=== PATIENT | female | born 1970 ===

== ENCOUNTER 2016-08-17 14:28 | Emergency (ER) | payer OTHER ==
[2016-08-17 14:43] VITALS: TEMP 98.4; O2SAT 99
[2016-08-17 15:33] LABS: BASO % 0.3 % (0.0-2.0); EOS # 0.1 K/uL (0.0-0.7); EOS % 0.9 % (0.0-4.0); HEMATOCRIT 43.4 % (34.0-47.0); LYMPH # 1.9 K/uL (1.0-4.3); LYMPH % 20.6 % (20.0-40.0); MEAN CELL VOLUME 90.3 fL (81.0-99.0); MEAN CORPUSCULAR HEMOGLOBIN 30.6 pg (27.0-31.0); MEAN CORPUSCULAR HGB CONC 33.9 g/dL (33.0-37.0); MEAN PLATELET VOLUME 7.2 fL (7.2-11.7); MONO # 0.5 K/uL (0.0-0.8); MONO % 5.5 % (0.0-10.0); RED CELL DISTRIBUTION WIDTH 13.3 % (11.5-14.5); WHITE BLOOD COUNT 9.1 K/uL (4.8-10.8)
[2016-08-17 15:38] LABS: RBC URINE 2 /hpf (0-3); URINE BACTERIA RARE (<OCC); URINE BILIRUBIN NEGATIVE (NEGATIVE); URINE BLOOD NEGATIVE (NEGATIVE); URINE COLOR Yellow (YELLOW); URINE GLUCOSE (UA) NORMAL (Normal); URINE KETONE NEGATIVE (NEGATIVE); URINE LEUKOCYTE ESTERASE NEG Leu/uL (Negative); URINE PROTEIN NEGATIVE (NEGATIVE); URINE UROBILINOGEN NORMAL mg/dL (0.2-1.0); WBC URINE 4 /hpf (0-5)
[2016-08-17 15:41] LABS: CHLORIDE 98 mmol/L (98-107); POTASSIUM 4.2 mmol/L (3.6-5.2); SODIUM 140 mmol/L (132-148)
[2016-08-17 15:43] LABS: ALB/GLOB RATIO 1.3 (1.0-2.1); ALKALINE PHOSPHATASE 58 U/L (38-126); AST/SGOT 31 U/L (14-36); BILIRUBIN,TOTAL 0.7 mg/dL (0.2-1.3); BLOOD UREA NITROGEN 12 mg/dL (7-17); CARBON DIOXIDE 26 mmol/L (22-30); GFR AFRICAN-AMERICAN > 60; TOTAL PROTEIN 8.3 g/dL (6.3-8.3)
[2016-08-17 15:44] LABS: ALCOHOL SERUM < 10 mg/dl (0-10); ALT/SGPT 34 U/L (9-52); CALCIUM 9.3 mg/dl (8.6-10.4); GLUCOSE,RANDOM 99 mg/dL (65-105)
--- NOTE | 2016-08-17 15:46 | C.PDOC ---
History Of Present Illness A 46 year old female presents to the ER c/o anxiety and tightness to the chest with palpitations for the last few days. Patient notes not being able to eat and sleep due to separation with her partner. Patient denies nausea, vomiting, fever, chills, headaches, suicidal or homicidal ideation. Time Seen by Provider: 08/17/16 14:58 Chief Complaint (Nursing): Anxiety History Per: Patient History/Exam Limitations: no limitations Onset/Duration Of Symptoms: Days Current Symptoms Are (Timing): Still Present Suicide/Self Injury Attempted (Context): None Modifying Factor(s): None Severity: Mild Associated Symptoms: denies: Suicidal Thoughts, Suicidal Plan Involuntary Hold By: None Recent travel outside of the [place]: No Additional History Per: Patient Past Medical History Reviewed: Historical Data, Nursing Documentation, Vital Signs Vital Signs: Last Vital Signs Temp 98.4 F 08/17/16 14:42 Pulse 91 H 08/17/16 14:42 Resp 16 08/17/16 14:42 BP 121/79 08/17/16 14:42 Pulse Ox 99 08/17/16 16:02 - Medical History PMH: Anxiety, Arthritis, Asthma, Depression, Gastritis Denies: Chronic Kidney Disease Family History: States: Unknown Family Hx - Social History Hx Alcohol Use: No Hx Substance Use: No - Immunization History Hx Tetanus Toxoid Vaccination: Yes Hx Influenza Vaccination: No Hx Pneumococcal Vaccination: No Review Of Systems Except As Marked, All Systems Reviewed And Found Negative. Constitutional: Negative for: Fever, Chills Cardiovascular: Positive for: Palpitations, Other (Chest tightness) Gastrointestinal: Negative for: Nausea, Vomiting Neurological: Negative for: Headache Psych: Positive for: Anxiety. Negative for: Suicidal ideation Physical Exam - Physical Exam Appears: Non-toxic, No Acute Distress, Other (Appears anxious) Skin: Warm, Dry Head: Atraumatic, Normacephalic Eye(s): bilateral: Normal Inspection, PERRL, EOMI Cardiovascular: Rhythm Regular, No Murmur Respiratory: Normal Breath Sounds, No Rales, No Rhonchi, No Wheezing Neurological/Psych: Oriented x3, Normal Speech, Normal Cognition, Other (A&A) ED Course And Treatment - Laboratory Results Result Diagrams: 08/17/16 15:18 08/17/16 15:18 O2 Sat by Pulse Oximetry: 99 (RA) Pulse Ox Interpretation: Normal Medical Decision Making Medical Decision Making: Impression: 46 y/o male c/o anxiety and tightness off the chest with palpitations. Plans: -Crisis eval -Reassess and disposition Crisis was contacted for evaluation of the patient. Patient seen by crisis, will follow up in [facility] Disposition Counseled Patient/Family Regarding: Studies Performed, Diagnosis, Need For Followup, Rx Given - Disposition Referrals: Clinic,Med Surg [Primary Care Provider] - Disposition: HOME/ ROUTINE Disposition Time: 18:21 Condition: STABLE Additional Instructions: Follow up as indicated by the crisis team Prescriptions: Lorazepam [Ativan] 1 tab PO HS #5 tab Instructions: Anxiety (ED) Forms: Gen Discharge Inst Sinhala, Work Excuse - POA Present On Arrival: None - Clinical Impression Clinical Impression: Anxiety - Scribe Statement The provider has reviewed the documentation as recorded by the Scribe Ranulfo dao All medical record entries made by the Scribe were at my direction and personally dictated by me. I have reviewed the chart and agree that the record accurately reflects my personal performance of the history, physical exam, medical decision making, and the department course for this patient. I have also personally directed, reviewed, and agree with the discharge instructions and disposition.
[2016-08-17 18:27] VITALS: BP 122/72; PULSE 72; RESP 18
== END 2016-08-17 18:46 | disposition home or self-care (01) ==
LOC: C.ER 14:28 → SUPCPDRO 14:28 → C.ER 18:46
DX: F41.9 Anxiety disorder, unspecified (principal)

== ENCOUNTER 2016-10-11 21:39 | Emergency (ER) | payer OTHER ==
[2016-10-11 21:58] VITALS: O2SAT 97
[2016-10-11] MEDS ORDERED: Sodium Chloride 0.9% 1,000 ML IV ONE (23:12)
[2016-10-11 23:28] LABS: ALBUMIN 4.1 g/dL (3.5-5.0); HCG,QUALITATIVE URINE NEGATIVE (NEGATIVE)
[2016-10-11 23:29] LABS: BASO % 0.7 % (0.0-2.0); EOS # 0.1 K/uL (0.0-0.7); EOS % 1.9 % (0.0-4.0); HEMOGLOBIN 13.9 g/dL (11.0-16.0); LYMPH # 1.8 K/uL (1.0-4.3); LYMPH % 27.7 % (20.0-40.0); MEAN CELL VOLUME 92.1 fL (81.0-99.0); MEAN CORPUSCULAR HEMOGLOBIN 29.9 pg (27.0-31.0); MEAN CORPUSCULAR HGB CONC 32.5 g/dL (33.0-37.0); MEAN PLATELET VOLUME 7.3 fL (7.2-11.7); MONO # 0.5 K/uL (0.0-0.8); MONO % 7.7 % (0.0-10.0); NEUT # 4.1 K/uL (1.8-7.0); RBC 4.63 Mil/uL (3.80-5.20); RED CELL DISTRIBUTION WIDTH 12.6 % (11.5-14.5); WHITE BLOOD COUNT 6.6 K/uL (4.8-10.8)
[2016-10-11 23:30] LABS: SQUAMOUS EPITHIAL 7 /hpf (0-5); URINE BACTERIA RARE (<OCC); URINE BILIRUBIN NEGATIVE (NEGATIVE); URINE BLOOD NEGATIVE (NEGATIVE); URINE CLARITY Clear (Clear); URINE COLOR Straw (YELLOW); URINE GLUCOSE (UA) NORMAL (Normal); URINE LEUKOCYTE ESTERASE NEG Leu/uL (Negative); URINE NITRATE NEGATIVE (NEGATIVE); URINE PROTEIN NEGATIVE (NEGATIVE); URINE UROBILINOGEN NORMAL mg/dL (0.2-1.0)
[2016-10-11 23:31] LABS: GFR AFRICAN-AMERICAN > 60; GFR NON-AFRICAN AMERICAN > 60
[2016-10-11 23:32] LABS: ALT/SGPT 25 U/L (9-52); AST/SGOT 21 U/L (14-36); BLOOD UREA NITROGEN 9 mg/dL (7-17); CALCIUM 8.7 mg/dl (8.6-10.4); LIPASE 151 U/L (23-300)
[2016-10-12 01:21] VITALS: RESP 20
--- NOTE | 2016-10-12 02:44 | C.PDOC ---
History Of Present Illness 46 year old female presents to the ED with complaints of right, mid, and low back pain that radiates down her legs. Patient notes a history of chronic pain with intermittent flare ups (similar to current symptoms). Pain worsened this afternoon, and sometimes radiates forward into the abdomen. Patient denies nausea, vomiting, diarrhea, fever, dysuria/hematuria, sensory changes in the legs, extremity weakness, urinary retention, bowel or bladder incontinence. Time Seen by Provider: 10/11/16 22:22 Chief Complaint (Nursing): Abdominal Pain History Per: Patient History/Exam Limitations: no limitations Onset/Duration Of Symptoms: Persistent (chronic pain ) Current Symptoms Are (Timing): Still Present Severity: Moderate Radiation Of Pain To:: Leg, Other (abdomen) Quality Of Discomfort: "Pain" Associated Symptoms: denies: Fever, Chills, Nausea, Vomiting, Diarrhea, Constipation, Urinary Symptoms Abnormal Vaginal Bleeding: No Past Medical History Reviewed: Historical Data, Nursing Documentation, Vital Signs Vital Signs: Last Vital Signs Temp 98.0 F 10/12/16 02:45 Pulse 70 10/12/16 02:45 Resp 20 10/12/16 02:45 BP 106/73 10/12/16 02:45 Pulse Ox 97 10/12/16 03:35 - Medical History PMH: Anxiety, Arthritis, Asthma, Depression, Gastritis Family History: States: No Known Family Hx - Social History Hx Alcohol Use: No Hx Substance Use: No - Immunization History Hx Tetanus Toxoid Vaccination: Yes Hx Influenza Vaccination: No Hx Pneumococcal Vaccination: No Review Of Systems Except As Marked, All Systems Reviewed And Found Negative. Constitutional: Negative for: Fever, Chills Cardiovascular: Negative for: Chest Pain, Palpitations Respiratory: Negative for: Cough, Shortness of Breath Gastrointestinal: Negative for: Nausea, Vomiting, Abdominal Pain, Diarrhea Genitourinary: Negative for: Dysuria, Hematuria Musculoskeletal: Positive for: Back Pain, Leg Pain Skin: Negative for: Rash Neurological: Negative for: Weakness, Numbness Physical Exam - Physical Exam Appears: Well, Non-toxic, In Acute Distress ( in mild pain) Skin: Normal Color, Warm, Dry, No Rash Eye(s): bilateral: Normal Inspection Oral Mucosa: Moist Neck: Supple Cardiovascular: Rhythm Regular Respiratory: Normal Breath Sounds, No Rales, No Rhonchi, No Wheezing Gastrointestinal/Abdominal: Normal Exam, Bowel Sounds, Soft, No Tenderness Back: No CVA Tenderness, No Vertebral Tenderness, Paraspinal Tenderness (right sided paraspinal tenderness approx T10- L4 level) Extremity: Normal ROM, No Tenderness, No Pedal Edema, No Calf Tenderness Extremity: Bilateral: Atraumatic, Normal Color And Temperature, Normal ROM Pulses: Left Dorsalis Pedis: Normal, Right Dorsalis Pedis: Normal Neurological/Psych: Oriented x3, Normal Motor, Normal Sensation Gait: Steady ED Course And Treatment - Laboratory Results Result Diagrams: 10/11/16 23:18 10/11/16 23:18 O2 Sat by Pulse Oximetry: 97 (room air ) Pulse Ox Interpretation: Normal Progress Note: Blood work, UA ordered and reviewed. Patient given IV toradol, IV NS bolus, PO Flexeril. Reevaluation Time: 02:50 Reassessment Condition: Improved (Patient reassessed, still having some mild pain, PO Percocet ordered. Blood work and UA unremarkable. Patient well appearing, and ambulating normally in the ED. Rxs given for naprosyn and flexeril. Patient instructed to follow up with PMD/clinic in 1-2 days. She understands she should return to ED if symptoms worsen.) Disposition Counseled Patient/Family Regarding: Studies Performed, Diagnosis, Need For Followup, Rx Given - Disposition Referrals: [facility] at [facility] [Outside] Disposition: HOME/ ROUTINE Disposition Time: 03:00 Condition: STABLE Prescriptions: Cyclobenzaprine [Cyclobenzaprine HCl] 10 mg PO BID PRN #12 tab PRN Reason: pain/muscle Naproxen [Naprosyn Tab] 375 mg PO BID PRN #20 tab PRN Reason: pain Instructions: Chronic Pain (ED) Print Language: PITCAIR[place] ISLANDER - POA Present On Arrival: None - Clinical Impression Clinical Impression: Back pain, Chronic pain - Scribe Statement The provider has reviewed the documentation as recorded by the Wongibkenisha Marshall All medical record entries made by the Wongibkenisha were at my direction and personally dictated by me. I have reviewed the chart and agree that the record accurately reflects my personal performance of the history, physical exam, medical decision making, and the department course for this patient. I have also personally directed, reviewed, and agree with the discharge instructions and disposition.
[2016-10-12 02:47] VITALS: BP 106/73; PULSE 70; TEMP 98
[2016-10-12] MEDS ORDERED: Oxycodone/Acetaminophen 5/325 mg Tab PO STA (03:03)
[2016-10-12] MEDS ORDERED: Oxycodone/Acetaminophen 5/325 mg Tab ONE (03:06)
== END 2016-10-12 03:07 | disposition home or self-care (01) ==
LOC: C.ER 21:39
DX: M54.5 Low back pain (principal)
CPT/HCPCS: 80053; 81001; 83690; 84703; 85025; 96361; 96374; 99285; J1885; J7040

== ENCOUNTER 2016-10-23 15:45 | Emergency (ER) | payer OTHER ==
[2016-10-23 15:49] VITALS: BMI 22.3
[2016-10-23 15:52] VITALS: BP 104/67; PULSE 89; RESP 18; TEMP 97.9; O2SAT 97
--- NOTE | 2016-10-23 16:54 | C.PDOC ---
History Of Present Illness 46 y/o female with Hx of Chronic right lower back pain presents to ED with complaints of right lower back and scapula pain for 2 weeks worse with movement. Patient states she taken Naproxen and Muscle relaxant once daily not twice as instructed. patient was scheduled for mri of lumbar spine in may 2016, but did not get study done. Patient was seen at ED for same symptoms 2 weeks ago. Patient denies urinary symptoms, fever, chills, n/v/d or any other complaints at this time. Time Seen by Provider: 10/23/16 16:09 Chief Complaint (Nursing): Back Pain History Per: Patient History/Exam Limitations: no limitations Onset/Duration Of Symptoms: Days Current Symptoms Are (Timing): Still Present Exacerbating Factor(s): Movement Past Medical History Reviewed: Historical Data, Nursing Documentation, Vital Signs Vital Signs: Last Vital Signs Temp 97.9 F 10/23/16 15:50 Pulse 89 10/23/16 15:50 Resp 18 10/23/16 15:50 BP 104/67 10/23/16 15:50 Pulse Ox 97 10/25/16 08:12 - Medical History PMH: Anxiety, Arthritis, Asthma, Depression, Gastritis Family History: States: Unknown Family Hx - Social History Hx Alcohol Use: No Hx Substance Use: No - Immunization History Hx Tetanus Toxoid Vaccination: Yes Hx Influenza Vaccination: No Hx Pneumococcal Vaccination: No Review Of Systems Constitutional: Negative for: Fever, Chills Gastrointestinal: Negative for: Nausea, Vomiting, Diarrhea Genitourinary: Negative for: Dysuria, Frequency, Incontinence Musculoskeletal: Positive for: Back Pain Skin: Negative for: Rash Physical Exam - Physical Exam Appears: Other (Thin female, Uncomfortable) Skin: Normal Color, Warm Head: Atraumatic, Normacephalic Oral Mucosa: Moist Neck: Normal ROM, No Midline Cervical Tenderness Chest: Symmetrical, No Deformity, No Tenderness Back: Normal Inspection, No Vertebral Tenderness, Muscle Spasm, Other (Right lumbar area tenderness, tender to right rhomboid area) Extremity: Normal ROM Neurological/Psych: Oriented x3, Normal Motor, Normal Sensation, Normal Reflexes ED Course And Treatment O2 Sat by Pulse Oximetry: 97 (RA) Pulse Ox Interpretation: Normal Medical Decision Making Medical Decision Making: pt much more comfortable after medications. will d/c home with lidoderm patches ; pt has naproxen and flexeril at home, advised to go to radiology to see if they will honor rx for mri from [place], and to f/u in clinic [facility]. Disposition Counseled Patient/Family Regarding: Diagnosis, Need For Followup, Rx Given - Disposition Referrals: [facility] [Outside] [facility] [Outside] Disposition: HOME/ ROUTINE Disposition Time: 18:42 Condition: IMPROVED Additional Instructions: [place] Relaxante Muscular y Naproxeno cada 12 horas. Dena Tylenol entre si es necesario para el dolor. Coloque el parche en el sal dolorosa trev 12 horas y luego 12 horas de descanso. Trate de hacerse garo resonancia magntica, vaya a la oficina de radiologa para alba si lo harn. Seguimiento en la clnica [facility] [place] sea posible- tratar de obtener un appoimtment anterior de roseanne. Prescriptions: Acetaminophen 650 mg PO Q8 #50 tablet Lidocaine 5% [Lidoderm] 1 patch TP Q12 #10 patch Instructions: Acute Low Back Pain (ED) Forms: Gen Discharge Inst Belarusian Print Language: MACEDONIAN - Clinical Impression Clinical Impression: Low back pain - Scribe Statement The provider has reviewed the documentation as recorded by the Scribkenisha Geiger All medical record entries made by the Scribe were at my direction and personally dictated by me. I have reviewed the chart and agree that the record accurately reflects my personal performance of the history, physical exam, medical decision making, and the department course for this patient. I have also personally directed, reviewed, and agree with the discharge instructions and disposition.
[2016-10-23] MEDS ORDERED: Lidocaine 5% Patch TD STA (17:23)
[2016-10-23] MEDS ORDERED: Lidocaine 5% Patch TD ONE (18:02)
== END 2016-10-23 18:53 | disposition home or self-care (01) ==
LOC: C.ER 15:45
DX: M54.5 Low back pain (principal)
CPT/HCPCS: 96372; 99283; J1885

== ENCOUNTER 2016-12-02 18:48 | Emergency (ER) | payer OTHER ==
[2016-12-02 18:48] VITALS: BMI 21.7
[2016-12-02 18:55] VITALS: RESP 18
[2016-12-02 19:13] LABS: RBC URINE < 1 /hpf (0-3); URINE BILIRUBIN NEGATIVE (NEGATIVE); URINE BLOOD NEGATIVE (NEGATIVE); URINE COLOR Yellow (YELLOW); URINE GLUCOSE (UA) NORMAL (Normal); URINE KETONE NEGATIVE (NEGATIVE); URINE LEUKOCYTE ESTERASE NEG Leu/uL (Negative); URINE PROTEIN NEGATIVE (NEGATIVE); URINE UROBILINOGEN NORMAL mg/dL (0.2-1.0); WBC URINE < 1 /hpf (0-5)
[2016-12-02] MEDS ORDERED: Sodium Chloride 0.9% 1,000 ML IV ONE (19:52)
--- NOTE | 2016-12-02 19:53 | C.PDOC ---
History Of Present Illness 46 year old female w/o significant pMHx presents to the ED with complaints of increased urinary frequency worse at night time for past few months. Patient sts , for past week, " unable to sleep because of urination and noted significant weight loss as well ", (+) moderate suprapubic tenderness. Otherwise, pt denies fever, chills, headache, weakness, CP, SOB, dyspnea, palpitation, V/D, hematuria , back pain, vaginal irritation or discharges. Ambulate to ED for evaluation, not in any apparent distress. Time Seen by Provider: 12/02/16 19:12 Chief Complaint (Nursing): Female Genitourinary History Per: Patient History/Exam Limitations: no limitations Onset/Duration Of Symptoms: Days Current Symptoms Are (Timing): Still Present Location Of Pain/Discomfort: Suprapubic Radiation Of Pain To:: None Quality Of Discomfort: Pressure Associated Symptoms: Other (increased urinary frequency ). denies: Fever, Chills, Nausea, Vomiting Recent travel outside of the [place]: No Past Medical History Reviewed: Historical Data, Nursing Documentation, Vital Signs Vital Signs: Last Vital Signs Temp 98.5 F 12/02/16 18:52 Pulse 88 12/02/16 18:52 Resp 18 12/02/16 18:52 BP 100/67 12/02/16 18:52 Pulse Ox 96 12/02/16 21:08 - Medical History PMH: Anxiety, Arthritis, Asthma, Depression, Gastritis, Hypercholesterolemia Family History: States: Unknown Family Hx - Social History Hx Alcohol Use: No Hx Substance Use: No - Immunization History Hx Tetanus Toxoid Vaccination: Yes Hx Influenza Vaccination: No Hx Pneumococcal Vaccination: No Review Of Systems Constitutional: Negative for: Fever, Chills Cardiovascular: Negative for: Chest Pain Respiratory: Negative for: Shortness of Breath Gastrointestinal: Positive for: Abdominal Pain (suprapubic pressure ). Negative for: Nausea, Vomiting, Diarrhea Genitourinary: Positive for: Frequency (urinary frequency ). Negative for: Dysuria, Hematuria, Vaginal Bleeding Physical Exam - Physical Exam Appears: Well, Non-toxic, No Acute Distress Skin: Warm, Dry, No Rash Head: Atraumatic, Normacephalic Eye(s): bilateral: PERRL Nose: No Flaring Oral Mucosa: Moist Throat: No Erythema, No Exudate, No Drooling Neck: Supple Chest: Symmetrical, No Deformity Cardiovascular: Rhythm Regular Respiratory: No Decreased Breath Sounds, No Accessory Muscle Use, No Rhonchi, No Stridor, No Wheezing Gastrointestinal/Abdominal: Soft, Tenderness (suprapubic tenderness ), No Distention, No Guarding, No Rebound Back: No CVA Tenderness Pelvic: Other (refused) Extremity: No Tenderness, No Pedal Edema Neurological/Psych: Oriented x3, Normal Speech, Normal Cognition ED Course And Treatment - Laboratory Results Result Diagrams: 12/02/16 20:28 12/02/16 20:28 Lab Interpretation: Normal O2 Sat by Pulse Oximetry: 96 (room air ) Pulse Ox Interpretation: Normal - CT Scan/US CT abd/plevis Other Rad Studies (CT/US): Radiology Report Reviewed CT/US Interpretation: FINDINGS: Lower thorax: Heart size is normal. There is 2.2 mm peripheral nodule in the right middle lobe. There is minimal pleural scarring. There are no effusions. ABDOMEN: Liver: There is a cyst in the right lobe of the liver. Gallbladder and bile ducts: unremarkable. Pancreas: unremarkable. Spleen: unremarkable. Adrenals: unremarkable. Kidneys and ureters: unremarkable. Stomach and bowel: Stomach is partially distended. There is small amount of radiopaque material in. the stomach. Rotation is normal. Small bowel is mildly distended with fluid and air. Terminal ileum is. distended with fluid. Appendix is unremarkable There is moderate stool in the colon. There is. scattered diverticulosis. Appendix: See stomach and bowel. PELVIS: Bladder: unremarkable. Reproductive: Uterus is absent. There are no adnexal masses. ABDOMEN and PELVIS: Intraperitoneal space: There is no significant fluid. No free air. Bones/joints: There are no acute osseous abnormalities. Soft tissues: unremarkable. Vasculature: unremarkable. Lymph nodes: There is shotty adenopathy. Other findings: Please. IMPRESSION: 2.2 mm right middle lobe nodule; no acute solid visceral abnormality, no renal or. ureteral stones or hydronephrosis; probable ileus, no obstruction. Additional findings as described above. Footer: As per Fleischner Society guidelines for follow-up and management of pulmonary nodules: For patients at low risk ( minimal or absent history of smoking and of other known risk factors), no follow -up needed. For patient at high risk (history of smoking or of other known risk factors),. recommend follow-up chest CT at 12 months; if unchanged, no further follow-up needed. Thank you for allowing us to participate in the care of your patient. Dictated and Authenticated by: Mary James MD. 2016 9:22 PM Eastern Time ([place] & [place]) Progress Note: Labs and abdominal CT were ordered. Patient was given IV fluids. On re-eval, pt is afebrile, hemodynamicaly stable. Tolerate Po well in ED. AMbulatoyr in ED with stable gait. Neck: Supple. ENT: no acute findings. Abd : benign, (-) guardng, (-) rebound. Back: (-) CVA tenderness. Neurological intact. Blood work, UA results review and appears normal. CT abd/plevis review and discussed with pt, small lung nodules, otherwise- unremarcable. Pt has clinical findings c/w urinary frequency. Pt advised and ref. to F/u with PMD , [facility] in 2-3 days for re-eavl. return to ED if any worsening or new changes. Disposition Counseled Patient/Family Regarding: Studies Performed, Diagnosis, Need For Followup, Rx Given - Disposition Referrals: [facility] at [facility] [Outside] [facility] [Outside] Disposition: HOME/ ROUTINE Disposition Time: 21:23 Condition: STABLE Additional Instructions: Take medication as prescribed Follow up with PMD, [facility] , Urology in 2-3 days for re-evaluation. Return to ED if any worsening or new changes. Prescriptions: Ciprofloxacin [Cipro] 1 tab PO BID #6 tab Instructions: Dysuria (ED) Forms: joiz (Montenegrin) Print Language: LUXEMBOURGISH - Clinical Impression Clinical Impression: Dysuria - Scribe Statement The provider has reviewed the documentation as recorded by the Scribe Jenna Marshall All medical record entries made by the Scribe were at my direction and personally dictated by me. I have reviewed the chart and agree that the record accurately reflects my personal performance of the history, physical exam, medical decision making, and the department course for this patient. I have also personally directed, reviewed, and agree with the discharge instructions and disposition.
[2016-12-02 20:34] LABS: BASO # 0.1 K/uL (0.0-0.2); BASO % 0.7 % (0.0-2.0); EOS # 0.2 K/uL (0.0-0.7); HEMATOCRIT 40.9 % (34.0-47.0); LYMPH % 24.6 % (20.0-40.0); MEAN CELL VOLUME 90.6 fL (81.0-99.0); MEAN CORPUSCULAR HEMOGLOBIN 30.7 pg (27.0-31.0); MEAN CORPUSCULAR HGB CONC 33.9 g/dL (33.0-37.0); MONO # 0.6 K/uL (0.0-0.8); NRBC % 0.2 % (0.0-2.0); RED CELL DISTRIBUTION WIDTH 12.6 % (11.5-14.5); WHITE BLOOD COUNT 8.3 K/uL (4.8-10.8)
[2016-12-02 20:41] LABS: CHLORIDE 99 mmol/L (98-107); POTASSIUM 4.1 mmol/L (3.6-5.2); SODIUM 138 mmol/L (132-148)
[2016-12-02 20:43] LABS: BILIRUBIN,TOTAL 0.7 mg/dL (0.2-1.3); GFR AFRICAN-AMERICAN > 60
[2016-12-02 20:44] LABS: ALB/GLOB RATIO 1.1 (1.0-2.1); ALKALINE PHOSPHATASE 61 U/L (38-126); ALT/SGPT 31 U/L (9-52); AST/SGOT 26 U/L (14-36); BLOOD UREA NITROGEN 17 mg/dL (7-17); CALCIUM 9.3 mg/dl (8.6-10.4); CARBON DIOXIDE 30 mmol/L (22-30); GLUCOSE,RANDOM 81 mg/dL (65-105); TOTAL PROTEIN 7.7 g/dL (6.3-8.3)
--- NOTE | 2016-12-02 21:23 | CT ---
EXAM: CT Abdomen and Pelvis Without Intravenous Contrast EXAM DATE/TIME: 12/02/2016 7:52 PM CLINICAL HISTORY: 46 years old, female; Pain; Abdominal pain; Flank; Lower; Additional info: Abd pain TECHNIQUE: Axial computed tomography images of the abdomen and pelvis without intravenous contrast. All CT scans at this facility use one or more dose reduction techniques, viz.: automated exposure control; ma/kV adjustment per patient size (including targeted exams where dose is matched to indication; i.e. head); or iterative reconstruction technique. Coronal and sagittal reformatted images were created and reviewed. COMPARISON: There are no prior studies for comparison. FINDINGS: Lower thorax: Heart size is normal. There is 2.2 mm peripheral nodule in the right middle lobe. There is minimal pleural scarring. There are no effusions. ABDOMEN: Liver: There is a cyst in the right lobe of the liver. Gallbladder and bile ducts: unremarkable Pancreas: unremarkable Spleen: unremarkable Adrenals: unremarkable Kidneys and ureters: unremarkable Stomach and bowel: Stomach is partially distended. There is small amount of radiopaque material in the stomach. Rotation is normal. Small bowel is mildly distended with fluid and air. Terminal ileum is distended with fluid. Appendix is unremarkable There is moderate stool in the colon. There is scattered diverticulosis. Appendix: See stomach and bowel PELVIS: Bladder: unremarkable Reproductive: Uterus is absent. There are no adnexal masses. ABDOMEN and PELVIS: Intraperitoneal space: There is no significant fluid. No free air Bones/joints: There are no acute osseous abnormalities Soft tissues: unremarkable Vasculature: unremarkable Lymph nodes: There is shotty adenopathy. Other findings: Please IMPRESSION: 2.2 mm right middle lobe nodule; no acute solid visceral abnormality, no renal or ureteral stones or hydronephrosis; probable ileus, no obstruction Additional findings as described above. Footer: As per Fleischner Society guidelines for follow-up and management of pulmonary nodules: For patients at low risk (minimal or absent history of smoking and of other known risk factors), no follow-up needed. For patient at high risk (history of smoking or of other known risk factors), recommend follow-up chest CT at 12 months; if unchanged, no further follow-up needed.
[2016-12-02 21:35] VITALS: BP 104/67; PULSE 74; TEMP 98; O2SAT 100
== END 2016-12-02 21:40 | disposition home or self-care (01) ==
LOC: C.ER 18:48
DX: R30.0 Dysuria (principal)
CPT/HCPCS: 74176; 80053; 81001; 83690; 84703; 85025; 96360; 99284; J7040

== ENCOUNTER 2017-03-13 10:50 | Emergency (ER) | payer OTHER ==
[2017-03-13 10:50] VITALS: BMI 21.7
[2017-03-13 11:12] VITALS: O2SAT 100
[2017-03-13] MEDS ORDERED: Albuterol-Ipratrop 3 mg / 0.5 (3 ml) UD IH STA (11:51)
--- NOTE | 2017-03-13 11:52 | C.PDOC ---
History Of Present Illness 47 yo female w PMHx of asthma come in for evaluation of bodychaes, chills, nasal congestion runny nose, dry cough gradually developed for past few days. Pt reports, since early today, (+) chest tightness " my asthma exacerbation". Otherwise, pt denies high fever, headache, dizziness, drooling, neck pain, CP, SOB, dyspnea, wheezing, abd. pain, V/D, back pain, UTI sx. Ambulate to ED for evaluation, not in any apparent distress. Time Seen by Provider: 03/13/17 11:22 Chief Complaint (Nursing): Flu-like Symptoms History Per: Patient Onset/Duration Of Symptoms: Gradual Past Medical History Reviewed: Historical Data, Nursing Documentation, Vital Signs Vital Signs: Last Vital Signs Temp 97 F L 03/13/17 11:10 Pulse 87 03/13/17 11:10 Resp 18 03/13/17 11:10 BP 97/62 L 03/13/17 11:10 Pulse Ox 100 03/13/17 11:52 - Medical History PMH: Anxiety, Arthritis, Asthma, Depression, Gastritis, Hypercholesterolemia Denies: Diabetes, Hepatitis, HIV, HTN, Chronic Kidney Disease, Seizures, Sexually Transmitted Disease Family History: States: No Known Family Hx - Social History Hx Tobacco Use: No Hx Alcohol Use: No Hx Substance Use: No - Immunization History Hx Tetanus Toxoid Vaccination: Yes Hx Influenza Vaccination: No Hx Pneumococcal Vaccination: No Review Of Systems Except As Marked, All Systems Reviewed And Found Negative. Constitutional: Positive for: Chills. Negative for: Fever ENT: Positive for: Nose Discharge, Nose Congestion, Throat Pain. Negative for: Ear Discharge Cardiovascular: Negative for: Chest Pain Respiratory: Positive for: Cough, Wheezing. Negative for: Shortness of Breath, Sputum Gastrointestinal: Negative for: Nausea, Vomiting, Abdominal Pain, Diarrhea Genitourinary: Negative for: Dysuria Musculoskeletal: Negative for: Neck Pain, Back Pain Skin: Negative for: Rash Neurological: Negative for: Altered Mental Status Physical Exam - Physical Exam Appears: Well, Non-toxic, No Acute Distress Skin: Normal Color, Warm, Dry, No Rash Head: Normacephalic Eye(s): bilateral: PERRL Ear(s): Bilateral: Normal Nose: No Flaring, Discharge (scanr B/L) Oral Mucosa: Moist, No Drooling Tongue: Normal Appearing Lips: Normal Appearing Throat: Erythema (mild), No Exudate, No Drooling Neck: Trachea Midline, Supple Cardiovascular: Rhythm Regular, No JVD Respiratory: No Decreased Breath Sounds, No Accessory Muscle Use, No Stridor, Wheezing (scant Right base) Gastrointestinal/Abdominal: Soft, No Tenderness Back: No CVA Tenderness Extremity: Normal ROM, No Deformity, No Swelling Neurological/Psych: Oriented x3, Normal Speech ED Course And Treatment O2 Sat by Pulse Oximetry: 100 Pulse Ox Interpretation: Normal - Radiology CXR: Interpreted by Me, Read By Radiologist CXR Interpretation: Yes: No Acute Disease Progress Note: On re-eval, pt is afebrile, hemodynamicaly stable. Non-toxic. Tolerate Po well in ED. PulseOx 100% RA. ENT: no acute findings. neck: Supple , (-) meningeal sign. Lungs: CTA B/L, BS equal B/L. ABd: benign. CXR review and appears normal. Pt has clinical findings c/w bronchitis, asthma exacerbation. Pt advised on course of ds. ref. to f/u with PMD in 2-3 days for re-eavl. return to ED if any worsening or new changes. Disposition Counseled Patient/Family Regarding: Studies Performed, Diagnosis, Need For Followup, Rx Given - Disposition Referrals: [facility] at [facility] [Outside] Disposition: HOME/ ROUTINE Disposition Time: 12:06 Condition: STABLE Additional Instructions: Encourage fluids take medication as prescribed Follow up with PMD in 2-3 days for re-evaluation. Return to ED if any worsening or new changes. Prescriptions: Albuterol HFA [Ventolin HFA 90 mcg/actuation (8 g)] 1 puff IH Q6 #1 inhaler Azithromycin 1 tab PO DAILY #4 tab Benzonatate [Tessalon Perle] 100 mg PO TID #14 capsule Prednisone [Deltasone] 20 mg PO DAILY #3 tablet Instructions: Acute Bronchitis (ED) Forms: Spoke (Jamaican) Print Language: SUDANESE - Clinical Impression Clinical Impression: Bronchitis
--- NOTE | 2017-03-13 12:03 | RAD ---
HISTORY: Cough COMPARISON: No prior. TECHNIQUE: Chest PA and lateral FINDINGS: LUNGS: No active pulmonary disease. PLEURA: No significant pleural effusion identified. No pneumothorax apparent. CARDIOVASCULAR: Normal. OSSEOUS STRUCTURES: No significant abnormalities. VISUALIZED UPPER ABDOMEN: Normal. OTHER FINDINGS: None. IMPRESSION: No acute cardiopulmonary disease appreciated.
[2017-03-13] MEDS ORDERED: Albuterol-Ipratrop 3 mg / 0.5 (3 ml) UD ONE (12:32)
[2017-03-13 13:28] VITALS: BP 96/60; PULSE 89; RESP 20; TEMP 98
== END 2017-03-13 13:27 | disposition home or self-care (01) ==
LOC: C.ER 10:50
DX: J40 Bronchitis, not specified as acute or chronic (principal); E78.00 Pure hypercholesterolemia, unspecified

== ENCOUNTER 2017-03-16 10:27 | Emergency (ER) | payer OTHER ==
[2017-03-16 10:27] VITALS: BMI 21.7
--- NOTE | 2017-03-16 12:04 | C.PDOC ---
History Of Present Illness 47 yr old female presents to the ER requesting psychiatric evaluation, reports history of depression and states she ran out of her medications. Patient states she also wants to know "the visitors who are coming to my house are social workers or from immigration". Patient currently denies SI, HI, fever, chest pain , SOB or any other active complaints. Time Seen by Provider: 03/16/17 10:44 Chief Complaint (Nursing): Psychiatric Evaluation History Per: Patient History/Exam Limitations: no limitations Past Medical History Reviewed: Historical Data, Nursing Documentation, Vital Signs Vital Signs: Last Vital Signs Temp 98.2 F 03/16/17 13:39 Pulse 87 03/16/17 13:39 Resp 20 03/16/17 13:39 BP 120/81 03/16/17 13:39 Pulse Ox 98 03/16/17 13:39 - Medical History PMH: Anxiety, Arthritis, Asthma, Depression, Gastritis, Hypercholesterolemia Family History: States: No Known Family Hx - Social History Hx Tobacco Use: No Hx Alcohol Use: No Hx Substance Use: No - Immunization History Hx Tetanus Toxoid Vaccination: Yes Hx Influenza Vaccination: No Hx Pneumococcal Vaccination: No Review Of Systems Except As Marked, All Systems Reviewed And Found Negative. Constitutional: Negative for: Fever Cardiovascular: Negative for: Chest Pain Respiratory: Negative for: Shortness of Breath Psych: Negative for: Suicidal ideation Physical Exam - Physical Exam Appears: Non-toxic, No Acute Distress Skin: Warm, Dry Head: Atraumatic, Normacephalic Oral Mucosa: Moist Cardiovascular: Rhythm Regular, No Murmur Respiratory: Normal Breath Sounds, No Rales, No Rhonchi, No Stridor, No Wheezing Extremity: Normal ROM, No Swelling Neurological/Psych: Oriented x3, Normal Speech, Normal Motor ED Course And Treatment - Laboratory Results Result Diagrams: 03/16/17 13:16 03/16/17 13:16 Lab Interpretation: Normal Urine POC: Negative O2 Sat by Pulse Oximetry: 99 (RA) Pulse Ox Interpretation: Normal Progress Note: AT 11:56, pt is medically cleared for crisis evaluation. At 12: 30, as per airplane woodworker, who evaluated pt in ED, and case was discussed with psych on-call , discarge with outpt F[facility] at [facility] at[facility] present time. On re-eval, pt is afebrile, hemodynamicaly stable. Non-toxic. Appears appropriate. Neuorlogicaly intact. Pt rachnaan joie agrees with discharges. Medical Decision Making Medical Decision Making: PLAN: * Alcohol Serum * Drug Screen * CBC * BMP * HCG * Urinalysis Disposition Counseled Patient/Family Regarding: Diagnosis, Need For Followup - Disposition Referrals: [facility] [Outside] Disposition: HOME/ ROUTINE Disposition Time: 12:45 Condition: STABLE Additional Instructions: Follow up with [facility] for further evaluation and treatment as need Return to ED if any worsening or new changes. Instructions: Depression (ED) Forms: [employer] (Spanish) Print Language: AUSTRIAN - Clinical Impression Clinical Impression: Depressed - PA / HORSE TRADER / Resident Statement MD/DO has reviewed & agrees with the documentation as recorded. - Scribe Statement The provider has reviewed the documentation as recorded by the Scribe Sunshine Gerber All medical record entries made by the Scribe were at my direction and personally dictated by me. I have reviewed the chart and agree that the record accurately reflects my personal performance of the history, physical exam, medical decision making, and the department course for this patient. I have also personally directed, reviewed, and agree with the discharge instructions and disposition.
[2017-03-16 13:27] LABS: BASO # 0.1 K/uL (0.0-0.2); BASO % 0.6 % (0.0-2.0); EOS # 0.1 K/uL (0.0-0.7); EOS % 0.7 % (0.0-4.0); HEMATOCRIT 40.6 % (34.0-47.0); LYMPH # 2.4 K/uL (1.0-4.3); MEAN CELL VOLUME 91.1 fL (81.0-99.0); MEAN CORPUSCULAR HEMOGLOBIN 31.1 pg (27.0-31.0); MEAN CORPUSCULAR HGB CONC 34.1 g/dL (33.0-37.0); MEAN PLATELET VOLUME 7.1 fL (7.2-11.7); MONO # 0.7 K/uL (0.0-0.8); MONO % 7.3 % (0.0-10.0); RED CELL DISTRIBUTION WIDTH 12.7 % (11.5-14.5); WHITE BLOOD COUNT 9.2 K/uL (4.8-10.8)
[2017-03-16 13:38] LABS: ALCOHOL SERUM < 10 mg/dl (0-10); BLOOD UREA NITROGEN 10 mg/dL (7-17); CALCIUM 8.5 mg/dl (8.6-10.4); CARBON DIOXIDE 31 mmol/L (22-30); CHLORIDE 101 mmol/L (98-107); GFR AFRICAN-AMERICAN > 60; GLUCOSE,RANDOM 91 mg/dL (65-105); POTASSIUM 3.4 mmol/L (3.6-5.2); SODIUM 138 mmol/L (132-148)
[2017-03-16 13:40] VITALS: BP 120/81; PULSE 87; RESP 20; TEMP 98.2
[2017-03-16 14:02] LABS: URINE BILIRUBIN NEGATIVE (NEGATIVE); URINE BLOOD NEGATIVE (NEGATIVE); URINE COLOR Yellow (YELLOW); URINE GLUCOSE (UA) NORMAL (Normal); URINE KETONE NEGATIVE (NEGATIVE); URINE LEUKOCYTE ESTERASE NEG Leu/uL (Negative); URINE PROTEIN NEGATIVE (NEGATIVE); URINE UROBILINOGEN NORMAL mg/dL (0.2-1.0); WBC URINE 2 /hpf (0-5)
[2017-03-16 17:34] VITALS: O2SAT 99
== END 2017-03-16 13:40 | disposition home or self-care (01) ==
LOC: C.ER 10:27
DX: F32.9 Major depressive disorder, single episode, unspecified (principal); E78.00 Pure hypercholesterolemia, unspecified

== ENCOUNTER 2017-06-13 19:08 | Emergency (ER) | payer SELFPAY ==
[2017-06-13 19:08] VITALS: BMI 21.7
[2017-06-13 19:56] VITALS: O2SAT 99
[2017-06-13 20:23] LABS: SQUAMOUS EPITHIAL 8 /hpf (0-5); URINE BACTERIA RARE (<OCC); URINE BILIRUBIN NEGATIVE (NEGATIVE); URINE BLOOD NEGATIVE (NEGATIVE); URINE CLARITY Clear (Clear); URINE COLOR Straw (YELLOW); URINE GLUCOSE (UA) NORMAL (Normal); URINE LEUKOCYTE ESTERASE NEG Leu/uL (Negative); URINE NITRATE NEGATIVE (NEGATIVE); URINE PROTEIN NEGATIVE (NEGATIVE); URINE UROBILINOGEN NORMAL mg/dL (0.2-1.0)
--- NOTE | 2017-06-13 20:58 | C.PDOC ---
History Of Present Illness 47-year-old female, PMHx includes hysterectomy, presents to the emergency department with complaints of lower abdominal pressure x1 week. Associated symptoms include urinary frequency and urgency. Denies any vaginal bleeding/ discharge, back pain, nausea/vomiting, fevers or chills. No other complaints at this time. Time Seen by Provider: 06/13/17 20:01 Chief Complaint (Nursing): Female Genitourinary History Per: Patient History/Exam Limitations: no limitations Past Medical History Reviewed: Historical Data, Nursing Documentation, Vital Signs Vital Signs: Last Vital Signs Temp 98.2 F 06/13/17 21:00 Pulse 72 06/13/17 21:00 Resp 20 06/13/17 21:00 BP 100/64 06/13/17 21:00 Pulse Ox 99 06/13/17 21:05 - Medical History PMH: Anxiety, Arthritis, Asthma, Depression, Gastritis, Hypercholesterolemia Denies: Diabetes, Hepatitis, HIV, HTN, Chronic Kidney Disease, Seizures, Sexually Transmitted Disease Family History: States: No Known Family Hx - Social History Hx Tobacco Use: No Hx Alcohol Use: No Hx Substance Use: No - Immunization History Hx Tetanus Toxoid Vaccination: Yes Hx Influenza Vaccination: No Hx Pneumococcal Vaccination: No Review Of Systems Constitutional: Negative for: Fever, Chills Respiratory: Negative for: Shortness of Breath Gastrointestinal: Negative for: Nausea, Vomiting, Abdominal Pain Genitourinary: Positive for: Frequency ((+)urgency). Negative for: Dysuria, Vaginal Discharge, Vaginal Bleeding Skin: Negative for: Rash Physical Exam - Physical Exam Appears: Non-toxic, No Acute Distress Skin: Normal Color, Warm, Dry, No Rash Head: Normacephalic Cardiovascular: Rhythm Regular, No Murmur Respiratory: Normal Breath Sounds, No Accessory Muscle Use Gastrointestinal/Abdominal: Soft, Tenderness (suprapubic), No Guarding, No Rebound Extremity: Normal ROM Neurological/Psych: Oriented x3, Normal Speech ED Course And Treatment O2 Sat by Pulse Oximetry: 99 (RA) Pulse Ox Interpretation: Normal Medical Decision Making Medical Decision Making: Plan: Urine Culture UA Reassess and Disposition Patients urine positive for sm bacteria and is symptomatic, will be treated for UTI, discharged with Rx for antibiotics and f/u urology Disposition Counseled Patient/Family Regarding: Diagnosis, Need For Followup, Rx Given - Disposition Referrals: Ok Ndiaye MD [Staff Provider] - Disposition: HOME/ ROUTINE Disposition Time: 20:56 Condition: GOOD Additional Instructions: Por favor tome antibiticos hasta que termine. Halina un seguimiento con el ur logo y en la clnica siddharth.Please take antibiotics until finished. Follow up with urologist and in medical clinic. Prescriptions: Nitrofurantoin Macrocrystals [Macrobid] 100 mg PO BID #14 cap Instructions: Urinary Tract Infection, Adult (DC) Forms: Gen Discharge Inst Malaysian, [employer] (Malaysian) Print Language: CITIZEN OF [place] - Clinical Impression Clinical Impression: UTI (urinary tract infection) - Scribe Statement The provider has reviewed the documentation as recorded by the Scribe (Steffen Smith) All medical record entries made by the Scribe were at my direction and personally dictated by me. I have reviewed the chart and agree that the record accurately reflects my personal performance of the history, physical exam, medical decision making, and the department course for this patient. I have also personally directed, reviewed, and agree with the discharge instructions and disposition.
[2017-06-13 21:04] VITALS: BP 100/64; PULSE 72; RESP 20; TEMP 98.2
== END 2017-06-13 21:04 | disposition home or self-care (01) ==
LOC: C.ER 19:08
DX: N39.0 Urinary tract infection, site not specified (principal)

== ENCOUNTER 2018-01-14 09:51 | Emergency (ER) | payer OTHER ==
[2018-01-14 09:51] VITALS: BMI 23.6
[2018-01-14 10:18] VITALS: PULSE 85
[2018-01-14] MEDS ORDERED: Albuterol-Ipratrop 3 mg / 0.5 (3 ml) UD IH SCH (11:15)
--- NOTE | 2018-01-14 11:15 | C.PDOC ---
History Of Present Illness 47 y/o female, with PMHx of asthma, presents to ED for evaluation of shortness of breath and productive cough. Pt complains of mid thoracic pain due to excessive coughing. Notes feeling congested at night. Pt states she ran out of her medications. Also notes she had CXR done and was found to have nodules in her lungs, and was advised to have chest CT done but has not followed up since. Pt reports feeling febrile. Denies chest pain, abdominal pain, nausea, vomiting, or any other associated symptoms at this time. Time Seen by Provider: 01/14/18 10:04 Chief Complaint (Nursing): Shortness Of Breath History Per: Patient History/Exam Limitations: no limitations Onset/Duration Of Symptoms: Days Current Symptoms Are (Timing): Still Present Past Medical History Reviewed: Historical Data, Nursing Documentation, Vital Signs Vital Signs: Last Vital Signs Temp 98.3 F 01/14/18 10:12 Pulse 85 01/14/18 10:12 Resp 20 01/14/18 10:12 BP 100/63 01/14/18 10:12 Pulse Ox 98 01/14/18 10:12 - Medical History PMH: Anxiety, Arthritis, Asthma, Depression, Gastritis, Hypercholesterolemia Denies: Diabetes, Hepatitis, HIV, HTN, Chronic Kidney Disease, Seizures, Sexually Transmitted Disease Family History: States: Unknown Family Hx - Social History Hx Tobacco Use: No Hx Alcohol Use: No Hx Substance Use: No - Immunization History Hx Tetanus Toxoid Vaccination: Yes Hx Influenza Vaccination: No Hx Pneumococcal Vaccination: No Review Of Systems Except As Marked, All Systems Reviewed And Found Negative. Constitutional: Positive for: Chills ENT: Positive for: Nose Congestion Cardiovascular: Negative for: Chest Pain Respiratory: Positive for: Cough, Shortness of Breath Gastrointestinal: Negative for: Nausea, Vomiting, Abdominal Pain Musculoskeletal: Positive for: Back Pain Neurological: Negative for: Weakness, Numbness Physical Exam - Physical Exam Appears: Non-toxic, No Acute Distress Skin: Normal Color, Warm, Dry Head: Atraumatic, Normacephalic Eye(s): bilateral: Normal Inspection Nose: Other (congestion) Oral Mucosa: Moist Neck: Normal ROM, Supple Chest: Symmetrical, No Tenderness Cardiovascular: Rhythm Regular, No Murmur Respiratory: Normal Breath Sounds, No Rales, No Rhonchi, No Wheezing, Other (speaking in full sentences) Gastrointestinal/Abdominal: Soft, No Tenderness Back: No Vertebral Tenderness, No Paraspinal Tenderness Extremity: Normal ROM, No Pedal Edema Neurological/Psych: Oriented x3, Normal Speech ED Course And Treatment O2 Sat by Pulse Oximetry: 98 (RA) Pulse Ox Interpretation: Normal Medical Decision Making Medical Decision Making: Plan: CXR Influenza AB Duoneb Disposition Counseled Patient/Family Regarding: Studies Performed, Diagnosis, Need For F ollowup - Disposition Referrals: [facility] at [facility] [Outside] Disposition: HOME/ ROUTINE Disposition Time: 13:37 Condition: STABLE Additional Instructions: Follow up with your doctor ot the clinic. Instructions: Cough, Runny Nose, and the Common Cold (DC) Forms: [facility] (Greenlandic), General Discharge Instructions, Work Excuse - POA Present On Arrival: None - Clinical Impression Clinical Impression: Influenza-like illness - Scribe Statement The provider has reviewed the documentation as recorded by the Scribe KP All medical record entries made by the Scribe were at my direction and personally dictated by me. I have reviewed the chart and agree that the record accurately reflects my personal performance of the history, physical exam, medical decision making, and the department course for this patient. I have also personally directed, reviewed, and agree with the discharge instructions and disposition.
[2018-01-14] MEDS ORDERED: Albuterol-Ipratrop 3 mg / 0.5 (3 ml) UD ONE (11:23)
--- NOTE | 2018-01-14 12:34 | RAD ---
Date of service: 01/14/2018 HISTORY: Back pain COMPARISON: No prior. TECHNIQUE: Chest PA and lateral FINDINGS: LUNGS: No active pulmonary disease. PLEURA: No significant pleural effusion identified. No pneumothorax apparent. CARDIOVASCULAR: No radiographic findings to suggest acute or significant cardiovascular disease. OSSEOUS STRUCTURES: No significant abnormalities. VISUALIZED UPPER ABDOMEN: Normal. OTHER FINDINGS: None. IMPRESSION: No active disease.
[2018-01-14 13:13] VITALS: BP 98/58; RESP 18; TEMP 98
[2018-01-14 13:38] VITALS: O2SAT 98
== END 2018-01-14 13:45 | disposition home or self-care (01) ==
LOC: C.ER 09:51
DX: J11.1 Influenza due to unidentified influenza virus with other respiratory manifestations (principal)

== ENCOUNTER 2018-06-16 09:02 | Outpatient (CLI) | payer OTHER | END 2018-06-16 09:03 | disposition home or self-care (01) | LOC: C.CTH 09:03 | DX: R79.89 Other specified abnormal findings of blood chemistry (principal); R91.1 Solitary pulmonary nodule ==

== ENCOUNTER 2018-06-16 20:20 | Emergency (ER) | payer OTHER ==
[2018-06-16 20:20] VITALS: BMI 23.6
[2018-06-16 20:30] VITALS: BP 104/70; PULSE 91; RESP 18; TEMP 98.9; O2SAT 99
--- NOTE | 2018-06-16 20:45 | C.PDOC ---
History Of Present Illness 48 y/o female presents to the ED requesting med refill. Patient states she is out of her Loratidine and Ventolin. She denies any SOB at this time. Patient appears comfortable on arrival, speaking in full sentences. She denies any fever, vomiting, abdominal pain, chest pain, or other associated symptoms. Time Seen by Provider: 06/16/18 20:35 Chief Complaint (Nursing): Med Refill History Per: Patient History/Exam Limitations: no limitations Onset/Duration Of Symptoms: Days Current Symptoms Are (Timing): Still Present Past Medical History Reviewed: Historical Data, Nursing Documentation, Vital Signs Vital Signs: Last Vital Signs Temp 98.9 F 06/16/18 20:30 Pulse 91 H 06/16/18 20:30 Resp 18 06/16/18 20:30 BP 104/70 06/16/18 20:30 Pulse Ox 99 06/16/18 20:30 - Medical History PMH: Anxiety, Arthritis, Asthma, Depression, Gastritis, Hypercholesterolemia Denies: Diabetes, Hepatitis, HIV, HTN, Chronic Kidney Disease, Seizures, Sexually Transmitted Disease Family History: States: Unknown Family Hx - Social History Hx Tobacco Use: No Hx Alcohol Use: No Hx Substance Use: No - Immunization History Hx Tetanus Toxoid Vaccination: Yes Hx Influenza Vaccination: No Hx Pneumococcal Vaccination: No Review Of Systems Except As Marked, All Systems Reviewed And Found Negative. Constitutional: Negative for: Fever, Sweats Cardiovascular: Negative for: Chest Pain Respiratory: Negative for: Shortness of Breath Gastrointestinal: Negative for: Vomiting, Abdominal Pain Musculoskeletal: Negative for: Back Pain Neurological: Negative for: Weakness, Numbness Physical Exam - Physical Exam Appears: Well, Non-toxic, No Acute Distress Skin: Normal Color Head: Normacephalic Eye(s): bilateral: Normal Inspection (no scleral icterus) Neck: Normal ROM Chest: Symmetrical Respiratory: No Accessory Muscle Use, Other (Normal inspiratory effort, No respiratory distress) Extremity: Bilateral: Atraumatic Neurological/Psych: Oriented x3 ED Course And Treatment O2 Sat by Pulse Oximetry: 99 (RA) Pulse Ox Interpretation: Normal Medical Decision Making Medical Decision Making: Impression: Visit for med refill Plan: Provided RX for Ventolin inhaler and Loratadine. Patient is stable for discharge home. Advised to follow up with PMD/the clinic in 1-2 days. Disposition Counseled Patient/Family Regarding: Diagnosis, Need For Followup, Rx Given - Disposition Disposition: HOME/ ROUTINE Disposition Time: 20:45 Condition: STABLE Prescriptions: Albuterol HFA [Ventolin HFA 90 mcg/actuation (8 g)] 2 puff IH [id number] #1 inhaler Loratadine 10 mg PO DAILY #30 capsule Instructions: Albuterol Forms: [facility] (Greenlandic), General Discharge Instructions - POA Present On Arrival: None - Clinical Impression Clinical Impression: Medication refill - PA / BILINGUAL OFFICE ASSISTANT / Resident Statement MD/DO has reviewed & agrees with the documentation as recorded. - Scribe Statement The provider has reviewed the documentation as recorded by the Christine Bender All medical record entries made by the Wongibkenisha were at my direction and personally dictated by me. I have reviewed the chart and agree that the record accurately reflects my personal performance of the history, physical exam, medical decision making, and the department course for this patient. I have also personally directed, reviewed, and agree with the discharge instructions and disposition.
== END 2018-06-16 21:29 | disposition home or self-care (01) ==
LOC: C.ER 20:20
DX: Z76.0 Encounter for issue of repeat prescription (principal)

== ENCOUNTER 2018-07-19 16:18 | Emergency (ER) | payer OTHER ==
[2018-07-19 16:20] VITALS: BMI 23.6
[2018-07-19 17:35] VITALS: O2SAT 98
[2018-07-19 17:39] LABS: SQUAMOUS EPITHIAL 1 /hpf (0-5); URINE BILIRUBIN NEGATIVE (NEGATIVE); URINE BLOOD NEGATIVE (NEGATIVE); URINE CLARITY Clear (Clear); URINE COLOR Yellow (YELLOW); URINE GLUCOSE (UA) NORMAL (Normal); URINE LEUKOCYTE ESTERASE NEG Leu/uL (Negative); URINE PROTEIN NEGATIVE (NEGATIVE); URINE UROBILINOGEN NORMAL mg/dL (0.2-1.0)
--- NOTE | 2018-07-19 18:12 | C.PDOC ---
History Of Present Illness Patient presents to ED c/o suprapubic and left adnexal/pelvic pain, as well as dysuria, for approx 1 week. She states she has mild vaginal discharge as well. Patient denies fever, nausea/vomiting, diarrhea, vaginal bleeding, flank pain, concern for STDs. PSHx of hysterectomy and "bladder reconstrive surgery" due to bladder prolapse. PMHx: gastritis, depression/anxiety, hyperlipidemia, arthritis Time Seen by Provider: 07/19/18 17:13 Chief Complaint (Nursing): Female Genitourinary History Per: Patient History/Exam Limitations: no limitations Onset/Duration Of Symptoms: Days Current Symptoms Are (Timing): Still Present Severity: Mild Quality Of Discomfort: "Pain" Past Medical History Reviewed: Historical Data, Nursing Documentation, Vital Signs Vital Signs: Last Vital Signs Temp 98.6 F 07/19/18 17:35 Pulse 100 H 07/19/18 17:35 Resp BP 99/67 L 07/19/18 17:06 Pulse Ox 98 07/19/18 17:35 - Medical History PMH: Anxiety, Arthritis, Asthma, Depression, Gastritis, Hypercholesterolemia Other Surgeries: hysterectomy, bladder reconstructive surgery due to prolapse Family History: States: No Known Family Hx - Social History Hx Tobacco Use: No Hx Alcohol Use: No Hx Substance Use: No - Immunization History Hx Tetanus Toxoid Vaccination: No Hx Influenza Vaccination: No Hx Pneumococcal Vaccination: No Review Of Systems Constitutional: Negative for: Fever, Chills Cardiovascular: Negative for: Chest Pain, Palpitations Respiratory: Negative for: Cough, Shortness of Breath Gastrointestinal: Negative for: Nausea, Vomiting, Abdominal Pain, Diarrhea Genitourinary: Positive for: Dysuria, Vaginal Discharge, Pelvic Pain. Negative for: Hematuria, Vaginal Bleeding Skin: Negative for: Rash Neurological: Negative for: Weakness, Numbness Physical Exam - Physical Exam Appears: Well, Non-toxic, No Acute Distress Head: Normacephalic Eye(s): bilateral: Normal Inspection Oral Mucosa: Moist Cardiovascular: Rhythm Regular Respiratory: Normal Breath Sounds, No Rales, No Rhonchi, No Wheezing Gastrointestinal/Abdominal: Bowel Sounds, Soft, Tenderness (left adnexal TTP), No Distention, No Guarding, No Rebound Back: Normal Inspection, No CVA Tenderness Pelvic: Normal External Exam (no lesions), Normal Speculum Exam (no discharge), No Normal Bimanual Exam (left adnexal TTP), No Vaginal Discharge, No Cervical Motion Tenderness, No Cervix Open, Adnexal Tenderness (left), No Mass, No Tender Uterus Neurological/Psych: Oriented x3 ED Course And Treatment - Laboratory Results Lab Results: Urine Color Yellow (YELLOW) 07/19/18 17:18 Urine Clarity Clear (Clear) 07/19/18 17:18 Urine pH 6.0 (5.0-8.0) 07/19/18 17:18 Ur Specific [place] 1.012 (1.003-1.030) 07/19/18 17:18 Urine Protein Negative mg/dL (NEGATIVE) 07/19/18 17:18 Urine Glucose (UA) Normal mg/dL (Normal) 07/19/18 17:18 Urine Ketones Negative mg/dL (NEGATIVE) 07/19/18 17:18 Urine Blood Negative (NEGATIVE) 07/19/18 17:18 Urine Nitrate Negative (NEGATIVE) 07/19/18 17:18 Urine Bilirubin Negative (NEGATIVE) 07/19/18 17:18 Urine Urobilinogen Normal mg/dL (0.2-1.0) 07/19/18 17:18 Ur Leukocyte Esterase Neg Jocelyne/uL (Negative) 07/19/18 17:18 Urine WBC (Auto) 1 /hpf (0-5) 07/19/18 17:18 Urine RBC (Auto) < 1 /hpf (0-3) 07/19/18 17:18 Ur Squamous Epith Cells 1 /hpf (0-5) 07/19/18 17:18 O2 Sat by Pulse Oximetry: 98 (RA) Pulse Ox Interpretation: Normal Progress Note: UA ordered and reviewed. UA neg for UTI. Pelvic exam (+) for mild left adnexal TTP - transvaginal US ordered. Disposition - Disposition Disposition Time: 19:00 Condition: STABLE Forms: [employer] (Slovenian) - Clinical Impression Clinical Impression: Pelvic pain Physician Patient Turnover Patient Signed Over To: Kristin Don Handoff Comments: PENDING US AND REASSESSMENT
[2018-07-19 20:51] VITALS: BP 98/55; PULSE 82; RESP 18; TEMP 98.1
--- NOTE | 2018-07-20 14:03 | US ---
Indication: LEFT ADNEXAL, SUPRAPUBIC PAIN Comparison: Transvaginal pelvic ultrasound performed 10/16/15 Technique: Real-time transabdominal pelvic ultrasound was performed. In addition a transvaginal pelvic ultrasound was necessary to better depict pelvic anatomy. Findings: The patient is status post hysterectomy. The right ovary is not visualized. The left ovary measures approximately 5.2 x 3.7 x 5.5 cm. 3.5 x 3.2 x 3.6 cm complex septated cyst. 1.5 x 1.2 x 1.6 cm complex cyst. Dilated tubular structure in the left adnexa measuring approximately 0.8 cm in diameter possibly hydrosalpinx. Impression: The patient is status post hysterectomy. The right ovary is not visualized. The left ovary measures approximately 5.2 x 3.7 x 5.5 cm. 3.5 x 3.2 x 3.6 cm complex septated cyst. 1.5 x 1.2 x 1.6 cm complex cyst. Dilated tubular structure in the left adnexa measuring approximately 0.8 cm in diameter possibly hydrosalpinx. Preliminary impression was provided by [email or web address].
== END 2018-07-19 21:01 | disposition home or self-care (01) ==
LOC: C.ER 16:18
DX: R10.2 Pelvic and perineal pain (principal)

== ENCOUNTER 2018-07-26 11:35 | Emergency (ER) | payer OTHER ==
[2018-07-26 11:45] VITALS: BMI 23.4
[2018-07-26 12:04] VITALS: RESP 18
--- NOTE | 2018-07-26 12:24 | C.PDOC ---
History Of Present Illness 48 y/o female, whose past medical history includes asthma, presents to the ED for evaluation of right-sided lower back pain radiating down right leg for one week. Patient reports complains of some discomfort with urinating. She took some Tylenol without relief. Patient denies fever, chills, nausea and vomiting. Time Seen by Provider: 07/26/18 12:14 Chief Complaint (Nursing): Back Pain History Per: Patient History/Exam Limitations: no limitations Onset/Duration Of Symptoms: Other (one week ) Current Symptoms Are (Timing): Still Present Quality Of Discomfort: "Pain" Previous Symptoms: Back Pain (right-sided, lower ) Associated Symptoms: denies: Incontinence, New Weakness, New Numbness Additional History Per: Patient Past Medical History Reviewed: Historical Data, Nursing Documentation, Vital Signs Vital Signs: Last Vital Signs Temp 99.0 F 07/26/18 11:59 Pulse 77 07/26/18 11:59 Resp 18 07/26/18 11:59 BP 101/69 07/26/18 11:59 Pulse Ox 98 07/26/18 11:59 - Medical History PMH: Anxiety, Arthritis, Asthma, Depression, Gastritis, Hypercholesterolemia Denies: Chronic Kidney Disease Surgical History: No Surg Hx Family History: States: Unknown Family Hx - Social History Hx Tobacco Use: No Hx Alcohol Use: No Hx Substance Use: No - Immunization History Hx Tetanus Toxoid Vaccination: No Hx Influenza Vaccination: No Hx Pneumococcal Vaccination: No Review Of Systems Constitutional: Negative for: Fever, Chills Gastrointestinal: Negative for: Nausea, Vomiting, Abdominal Pain Genitourinary: Positive for: Other (discomfort with urination ). Negative for: Incontinence Musculoskeletal: Positive for: Back Pain (right-sided, lower ) Skin: Negative for: Rash, Lesions, Jaundice, Bruising Neurological: Negative for: Weakness, Numbness Physical Exam - Physical Exam Appears: Well, Non-toxic, No Acute Distress, Other (well-appeating, slim female ) Skin: Normal Color, Warm, Dry Head: Atraumatic, Normacephalic Eye(s): bilateral: Normal Inspection Oral Mucosa: Moist Neck: Normal ROM, No Midline Cervical Tenderness, No Paracervical Tenderness, Supple Chest: Symmetrical, No Deformity, No Tenderness Cardiovascular: Rhythm Regular, No Murmur Respiratory: Normal Breath Sounds, No Rales, No Rhonchi, No Wheezing Gastrointestinal/Abdominal: Soft, Tenderness (mild, suprapubic ), No Guarding, No Rebound Back: CVA Tenderness (mild, right-sided ), No Vertebral Tenderness, Paraspinal Tenderness (right-sided, lumbar ) Extremity: Normal ROM, Capillary Refill (less than 2 seconds ), Other (right sciatic-notch tenderness ) Neurological/Psych: Oriented x3, Normal Speech, Normal Cognition Gait: Steady ED Course And Treatment O2 Sat by Pulse Oximetry: 98 Medical Decision Making Medical Decision Making: Progress: Urinalysis ordered and reviewed. Tylenol PO given. Disposition Counseled Patient/Family Regarding: Studies Performed, Diagnosis, Need For Followup, Rx Given - Disposition Referrals: Ok Ndiaye MD [Staff Provider] - Evi Gracia MD [Staff Provider] - Disposition: HOME/ ROUTINE Disposition Time: 14:12 Condition: GOOD Additional Instructions: Qutese el parche en 12 horas. [place] naproxeno [place] se lo recetaron. [place] relajante muscular al acostarse si est trabajando o yendo a la escuela o nicolas veces al da si est en casa. Halina un seguimiento con el Dr. Gracia en la clnica mdica y con un urlogo. Recomienda la terapia fsica para el dolor de espalda crnico. ,Take patch off in 12 hours. Take naproxen as prescribed. Take muscle relaxant at bedtime if working or going to school or three times a day if at home. Follow up with Dr Gracia in mdical clinic and with urologist. Recommend physical therapy for chronic back pain. , Forms: [facility] (Korean), Gen Discharge Inst Tristanian, [facility] (Tristanian) - Clinical Impression Clinical Impression: Low back strain, Sciatica, Dysuria - PA / ENGINE TURNER / Resident Statement MD/DO has reviewed & agrees with the documentation as recorded. - Scribe Statement The provider has reviewed the documentation as recorded by the Scribe (Yue Bui) All medical record entries made by the Scribe were at my direction and personally dictated by me. I have reviewed the chart and agree that the record accurately reflects my personal performance of the history, physical exam, medical decision making, and the department course for this patient. I have also personally directed, reviewed, and agree with the discharge instructions and disposition.
[2018-07-26 12:29] LABS: SQUAMOUS EPITHIAL 3 /hpf (0-5)
[2018-07-26 12:30] LABS: URINE BILIRUBIN NEGATIVE (NEGATIVE); URINE CLARITY Clear (Clear); URINE COLOR YELLOW (YELLOW); URINE GLUCOSE (UA) NEGATIVE (Normal)
[2018-07-26 12:31] LABS: URINE BLOOD NEGATIVE (NEGATIVE); URINE LEUKOCYTE ESTERASE NEGATIVE Leu/uL (Negative); URINE PROTEIN NEGATIVE (NEGATIVE); URINE UROBILINOGEN 0.2 mg/dL (0.2-1.0)
[2018-07-26 13:28] VITALS: BP 153/70; PULSE 65; TEMP 98.5
[2018-07-26] MEDS ORDERED: Lidocaine 5% Patch TD STA (13:50)
[2018-07-26] MEDS ORDERED: Lidocaine 5% Patch TD ONE (13:57)
[2018-07-26 14:15] VITALS: O2SAT 98
== END 2018-07-26 14:21 | disposition home or self-care (01) ==
LOC: C.ER 11:35
DX: S39.012A Strain of muscle, fascia and tendon of lower back, initial encounter (principal); X58.XXXA Exposure to other specified factors, initial encounter; R30.0 Dysuria; M54.30 Sciatica, unspecified side; E78.00 Pure hypercholesterolemia, unspecified

== ENCOUNTER 2018-08-31 08:48 | Outpatient (CLI) | payer OTHER | END 2018-08-31 08:49 | disposition home or self-care (01) | LOC: C.MAMMO 08:49 ==

== ENCOUNTER 2018-09-04 19:49 | Emergency (ER) | payer OTHER ==
[2018-09-04 19:50] VITALS: BMI 23.4
[2018-09-04 20:08] VITALS: BP 97/68; PULSE 88; RESP 18; TEMP 98.4; O2SAT 99
--- NOTE | 2018-09-04 20:52 | C.PDOC ---
History Of Present Illness 48 y/o female pt presents to the ER c/o cough. Associated sx includes sore throat, congestion, back pain, chest discomfort and subjective fever. Pt is on Ventolin and montelukast with no improvement. Pt denies sick contact and cough medications. Chief Complaint (Nursing): Cough, Cold, Congestion History Per: Patient History/Exam Limitations: no limitations Onset/Duration Of Symptoms: Days Past Medical History Reviewed: Historical Data, Nursing Documentation, Vital Signs Vital Signs: Last Vital Signs Temp 98.4 F 09/04/18 19:52 Pulse 88 09/04/18 19:52 Resp 18 09/04/18 19:52 BP 97/68 L 09/04/18 19:52 Pulse Ox 99 09/04/18 19:52 Primary Care Provider: Non [facility] Provider, - Medical History PMH: Anxiety, Arthritis, Asthma, Depression, Gastritis, Hypercholesterolemia Family History: States: Unknown Family Hx - Social History Hx Tobacco Use: No Hx Alcohol Use: No Hx Substance Use: No - Immunization History Hx Tetanus Toxoid Vaccination: No Hx Influenza Vaccination: No Hx Pneumococcal Vaccination: No Review Of Systems Constitutional: Positive for: Fever (subjective). Negative for: Other (sick contact) ENT: Positive for: Nose Congestion, Throat Pain Cardiovascular: Positive for: Other (chest discomfort) Respiratory: Positive for: Cough Musculoskeletal: Positive for: Back Pain Physical Exam - Physical Exam Appears: Non-toxic, No Acute Distress Skin: Warm, Dry Head: Atraumatic, Normacephalic Eye(s): bilateral: Normal Inspection, PERRL Ear(s): Bilateral: Normal Nose: Normal Oral Mucosa: Moist Tongue: Normal Appearing Lips: Normal Appearing Throat: No Erythema, No Exudate Neck: Normal ROM, Supple Chest: Symmetrical Cardiovascular: Rhythm Regular Respiratory: Normal Breath Sounds, No Wheezing Gastrointestinal/Abdominal: Soft, No Tenderness Neurological/Psych: Oriented x3, Normal Speech, Normal Cognition, Normal Motor, Normal Sensation Gait: Steady ED Course And Treatment O2 Sat by Pulse Oximetry: 99 (RA) Pulse Ox Interpretation: Normal - Other Rad chest xray Interpretation: Accession No. : [id number]. Patient Name / ID : TERA HOANG / [id number]. Exam Date : 09/04/2018 20:24:26 ( Approved ). Study Comment : Sex / Age : F / 48Y. Creator : Hernesto Nichols MD. Dictator : Hernesto Nichols MD. Drafter Engineering : [employer] Car[employer] Supervisor : Hernesto Nichols MD. Approver2 : Report Date : 09/05/2018 16:40:47. My Comment : . Date of service: 09/04/2018. HISTORY: cough; history of asthma. COMPARISON: 01/14/2018. TECHNIQUE: Chest PA and lateral views. FINDINGS: LUNGS: No evidence of new infiltrate or consolidation in the lungs. PLEURA: No significant pleural effusion identified. No pneumothorax apparent. CARDIOVASCULAR: No aortic atherosclerotic calcification present. Normal cardiac size. No pulmonary vascular congestion. OSSEOUS STRUCTURES: No significant abnormalities. VISUALIZED UPPER ABDOMEN: Normal. OTHER FINDINGS: None. IMPRESSION: No active disease. Medical Decision Making Medical Decision Making: Plan: -- CXR ordered- unremarkable; d/w patient results and plan -- Claritin -- tessalon -- tylenol patient reassessed and notes improvement stable for discharge Disposition Counseled Patient/Family Regarding: Studies Performed, Diagnosis, Need For Followup, Rx Given - Disposition Referrals: Non [facility] Provider, [Non-Staff] - [facility] [Outside] Disposition: HOME/ ROUTINE Disposition Time: 21:03 Condition: IMPROVED Additional Instructions: Continue meds as prescribed Rest and Hydration Follow up with PMD in 1-2 days if symptoms persist Return to the ED if symptoms worsen Contine con los medicamentos segn lo prescrito [place] e hidratacin Siga con PMD en 1-2 blair si los sntomas persisten Regrese a la ED si los sntomas empeoran Prescriptions: Albuterol HFA [Ventolin HFA 90 mcg/actuation (8 g)] 2 puff IH [id number] PRN #1 inhaler PRN Reason: Shortness Of Breath Benzonatate [Tessalon Perles] 100 mg PO TID #30 sgl Loratadine [Claritin] 10 mg PO DAILY PRN #30 tab PRN Reason: Allergy Symptoms predniSONE [predniSONE Tab] 60 mg PO DAILY #15 tab Instructions: Asthma, Adult (DC), Viral Upper Respiratory Infection, Adult (DC), Cough, Adult (DC) Forms: [facility] (Telugu) Print Language: ZAMBIAN - Clinical Impression Clinical Impression: Cough, Asthma - PA / EPIC ANESTHESIA ANALYST / Resident Statement / has reviewed & agrees with the documentation as recorded. - Scribe Statement The provider has reviewed the documentation as recorded by the Christine Crowe Do All medical record entries made by the Christine were at my direction and personally dictated by me. I have reviewed the chart and agree that the record accurately reflects my personal performance of the history, physical exam, medical decision making, and the department course for this patient. I have also personally directed, reviewed, and agree with the discharge instructions and disposition.
--- NOTE | 2018-09-05 16:44 | RAD ---
Date of service: 09/04/2018 HISTORY: cough; history of asthma COMPARISON: 01/14/2018 TECHNIQUE: Chest PA and lateral views FINDINGS: LUNGS: No evidence of new infiltrate or consolidation in the lungs PLEURA: No significant pleural effusion identified. No pneumothorax apparent. CARDIOVASCULAR: No aortic atherosclerotic calcification present. Normal cardiac size. No pulmonary vascular congestion. OSSEOUS STRUCTURES: No significant abnormalities. VISUALIZED UPPER ABDOMEN: Normal. OTHER FINDINGS: None. IMPRESSION: No active disease.
== END 2018-09-04 21:13 | disposition home or self-care (01) ==
LOC: C.ER 19:49
DX: R05 Cough (principal); J45.909 Unspecified asthma, uncomplicated